=== PATIENT | female | born 2000 | race Caucasian/White ===

== ENCOUNTER 2024-02-24 04:55 | Emergency (ER) | payer OTHER ==
[2024-02-24 05:03] VITALS: RESP 18
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
[2024-02-24] MEDS: ACETAMINOPHEN TAB 325 MG TAB PO STA (05:22)
[2024-02-24] MEDS: traMADol 50 MG TAB PO STA (05:22)
[2024-02-24] MEDS: KETOROLAC 15 MG/ML 1 ML VIAL IM STA (05:25)
[2024-02-24] MEDS: HYDROmorphone 1 MG/ML 1 ML SYRINGE IM STA (07:26)
--- NOTE | 2024-02-24 07:37 | XR ---
EXAMINATION TYPE: XR lumbar spine 2 or 3V DATE OF EXAM: 02/24/2024 5:19 AM COMPARISON: None CLINICAL INDICATION: Female, 23 years old with history of pain; PHH, pain TECHNIQUE: XR lumbar spine 2 or 3V - Frontal, lateral and coned in L5-S1 lateral views of the spine. FINDINGS: No evidence of any acute osseous pathology. No evidence of loss of vertebral body height i s seen. There is normal alignment of the lumbar vertebral bodies. No significant degeneration changes throughout the spine. IMPRESSION: No acute fracture. [facility], , 02/24/2024 7:35 AM
--- NOTE | 2024-02-24 07:40 | XR ---
EXAMINATION TYPE: XR sacrum coccyx DATE OF EXAM: 02/24/2024 5:19 AM COMPARISON: None CLINICAL INDICATION: Female, 23 years old with history of pain; TECHNIQUE: XR sacrum coccyx, examined in frontal and lateral projections. FINDINGS: There is no evidence of fracture or dislocation. There is no soft tissue abnormality. No a bnormal calcifications are present. Multilevel degenerative changes of the lower spine. IMPRESSION: No acute osseous pathology. [facility], , 02/24/2024 7:38 AM
[2024-02-24 07:57] LABS: Appearance,Urine Cloudy (Clear); Bacteria,Urine Occasional /hpf; Bilirubin,Urine Negative (Negative); Blood,Urine Negative (Negative); Color,Urine Colorless; Glucose,Urine (UA) Negative (Negative); Ketones,Urine Negative (Negative); Leukocyte Esterase,Urine Negative (Negative); Mucus,Urine Occasional /hpf; Nitrite,Urine Negative (Negative); PH, Urine 7.5 (5.0-8.0); Protein,Urine Negative (Negative); Renal Epithelial Cells,Urine 7 /hpf (0); Specific Gravity,Urine 1.019 (1.001-1.035); Squamous Epithelial Cell,Urine 12 /hpf (0-4); Urobilinogen,Urine <2.0 mg/dL (<2.0); WBC,Urine 2 /hpf (0-5)
--- NOTE | 2024-02-24 07:57 | CT ---
EXAMINATION TYPE: CT lumbar spine wo con, CT sacrum wo con DATE OF EXAM: 02/24/2024 7:09 AM COMPARISON: Plain films same day. CLINICAL INDICATION: Female, 23 years old with history of pain; PHH, fall, tailbone pain TECHNIQUE: CT axial imaging of the lumbar spine and sacrum with sagittal and coronal reformats. Mult iple axial images were obtained from the midportion of T11 through the sacroiliac joints. Soft tissu e and bone windows in coronal and sagittal planes were obtained and reviewed. Contrast used: mL of , (None, if empty). Oral contrast used: (None, if empty). CT DLP: 603.9 mGycm, Automated exposure control for dose reduction was used. FINDINGS: Alignment: There are 5 lumbar type vertebral bodies within normal alignment. Bone: No evidence of fracture. No significant degeneration. The sacrum is intact mild angulation of the coccyx which can be seen in normal anatomy no cortical irregularity to suggest fracture of the sa danyel or coccyx. Discs: T12-L1: No spinal canal or neural foraminal stenosis is identified. L1-L2: No spinal canal or neural foraminal stenosis is identified. L2-L3: No spinal canal or neural foraminal stenosis is identified. L3-L4: No spinal canal or neural foraminal stenosis is identified. L4-L5: No spinal canal or neural foraminal stenosis is identified. L5-S1: No spinal canal or neural foraminal stenosis is identified. Other: None IMPRESSION: No evidence of fracture. No significant degeneration. The sacrum is intact mild angulation of the jose cyx which can be seen in normal anatomy no cortical irregularity to suggest fracture of the sacrum or coccyx. [facility], , 02/24/2024 7:55 AM
[2024-02-24] MEDS: IBUPROFEN 600 MG STARTER PACK 4 TAB BTL PO STA (08:30)
[2024-02-24] MEDS: traMADol 50 MG STARTER PACK 3 TAB BTL PO STA (08:30)
[2024-02-24 08:34] VITALS: BP 106/63; PULSE 62; TEMP 97.9
== END 2024-02-24 08:34 | disposition home or self-care (01) ==
LOC: EC 04:55
DX: S30.0XXA Contusion of lower back and pelvis, initial encounter (principal); W19.XXXA Unspecified fall, initial encounter
CPT/HCPCS: 81001; 81025; 72100; 72220; 72131; 72192; 99284; 96372; J1171; J1885